=== PATIENT | female | born 1990 | race Caucasian/White ===

== ENCOUNTER 2017-04-06 23:36 | Emergency (ER) | payer OTHER ==
[2017-04-07 00:02] VITALS: BP 127/91; TEMP 98.4; O2SAT 97
[2017-04-07] MEDS ORDERED: ALPRAZolam 0.25 MG TAB PO ONE (00:14)
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
== END 2017-04-07 00:32 | disposition home or self-care (01) ==
LOC: ER 23:36
DX: T74.11XA Adult physical abuse, confirmed, initial encounter (principal); Y07.01 Husband, perpetrator of maltreatment and neglect; N80.9 Endometriosis, unspecified; C53.9 Malignant neoplasm of cervix uteri, unspecified; F41.9 Anxiety disorder, unspecified; Z88.6 Allergy status to analgesic agent; Z88.8 Allergy status to other drugs, medicaments and biological substances; Z91.030 Bee allergy status; Z87.891 Personal history of nicotine dependence

== ENCOUNTER 2017-04-08 02:03 | Emergency (ER) | payer OTHER ==
--- NOTE | 2017-04-08 02:54 | ED.PDOC ---
History of Present Illness - General Stated Complaint: cervical pain Time Seen by Provider: 04/08/17 02:48 Source: patient Exam Limitations: no limitations - History of Present Illness Initial Comments: Patient presents with pelvic pain. She was recently diagnosed with cervical cancer and is in the staging process. She was in pain tonight and called her doctor who suggested that she come to the ER for a stadol shot. No other complaints. Timing/Duration: changing over time Severity: moderate Improving Factors: nothing Worsening Factors: nothing Associated Symptoms: denies symptoms Allergies/Adverse Reactions: Allergies Meperidine [From Demerol HCl] Allergy (Verified 04/06/17 23:50) Gabapentin Adverse Reaction (Verified 11/11/16 13:18) Morphine Adverse Reaction (Verified 11/11/16 13:18) bee stings Adverse Reaction (Uncoded 08/08/15 10:42) Home Medications: Ambulatory Orders Clindamycin IV 300Mg [Cleocin IV 300mg] 300 mg PO DAILY 11/11/16 Clonazepam 0.5 mg PO DAILY PRN #10 tab 04/07/17 Review of Systems - Review of Systems Constitutional: States: no symptoms reported EENTM: States: no symptoms reported Respiratory: States: no symptoms reported Cardiology: States: no symptoms reported Gastrointestinal/Abdominal: States: no symptoms reported Genitourinary: States: see HPI Musculoskeletal: States: no symptoms reported Skin: States: no symptoms reported Neurological: States: no symptoms reported Endocrine: States: no symptoms reported Hematologic/Lymphatic: States: no symptoms reported Past Medical History (General) - Patient Medical History Hx Seizures: No Hx Stroke: No Hx Dementia: No Hx Asthma: No Hx of COPD: No Hx Cardiac Disorders: No Hx Congestive Heart Failure: No Hx Pacemaker: No Hx Hypertension: No Hx Thyroid Disease: No Hx Diabetes: No Hx Gastroesophageal Reflux: No Hx Renal Disease: No Hx Cancer: No Hx of HIV: No Hx Hepatitis C: No Hx MRSA: No - Vaccination History Hx Tetanus, Diphtheria Vaccination: Yes Hx Influenza Vaccination: Yes Hx Pneumococcal Vaccination: Yes - Social History Hx Tobacco Use: Yes Hx Chewing Tobacco Use: No Hx Alcohol Use: No Hx Substance Use: No Hx Substance Use Treatment: No Hx Depression: No Hx Physical Abuse: No Hx Emotional Abuse: No Hx Suspected Abuse: No - Female History Patient : No Family Medical History - Family History Mother Family History: No Known Hx Family Cancer: Yes - Mother Pancreatic Cancer Physical Exam - Physical Exam General Appearance: Alert Respiratory: lungs clear Cardiovascular/Chest: regular rate, rhythm Gastrointestinal/Abdominal: normal bowel sounds, non tender, soft Progress - Progress Progress: 04/08/17 02:54 Stadol 2 mg IM x one. Departure - Departure Clinical Impression: Pelvic pain Disposition: Discharge to Home or Self Care Condition: Good Diet: resume usual diet Activity: increase activity as tolerated Referrals: ALEXYS OLMOS,SIMON Cheema [Primary Care Provider] - 1-2 Weeks Home Medications: Ambulatory Orders Clindamycin IV 300Mg [Cleocin IV 300mg] 300 mg PO DAILY 11/11/16 Clonazepam 0.5 mg PO DAILY PRN #10 tab 04/07/17 Additional Instructions: Follow up with your primary care physician as scheduled.
[2017-04-08] MEDS ORDERED: BUTORPHANOL TARTRATE 2 MG/ML VIAL IM ONE (03:14)
[2017-04-08 03:48] VITALS: BP 120/83; TEMP 99.7; O2SAT 98
== END 2017-04-08 03:37 | disposition home or self-care (01) ==
LOC: ER 02:03
DX: R10.2 Pelvic and perineal pain (principal); C53.9 Malignant neoplasm of cervix uteri, unspecified; Z80.8 Family history of malignant neoplasm of other organs or systems; Z88.6 Allergy status to analgesic agent; Z88.8 Allergy status to other drugs, medicaments and biological substances; Z91.030 Bee allergy status

== ENCOUNTER 2017-09-11 21:35 | Emergency (ER) | payer OTHER ==
--- NOTE | 2017-09-11 21:45 | ED.PDOC ---
History of Present Illness - General Chief Complaint: General Stated Complaint: rib hurts on coughing Time Seen by Provider: 09/11/17 21:44 Source: patient Exam Limitations: no limitations - History of Present Illness Comments: Dede [place] 27 y/o female stated that she had been productive cough for the last one week and recently with left lower rib cage pain during coughing episodes denies hemoptysis ,fever or asthma .Stated had cut down on her smoking to 5 cigs/day Timing/Duration: other - 5 days Cough Quality/Degree: productive cough Possible Cause: occasional episodes Improving Factors: nothing Worsening Factors: nothing Associated Symptoms: chest pain/soreness - lower rib cage left Respiratory Risk Factors: other - cigarette Allergies/Adverse Reactions: Allergies Meperidine [From Demerol HCl] Allergy (Verified 04/08/17 03:13) Gabapentin Adverse Reaction (Verified 04/08/17 03:13) Morphine Adverse Reaction (Verified 04/08/17 03:13) bee stings Adverse Reaction (Uncoded 08/08/15 10:42) Home Medications: Ambulatory Orders Amoxicillin [Amoxil] 1,000 mg PO BID #30 cap 09/11/17 Benzonatate Perles [Tessalon Perles] 200 mg PO TID #30 cap 09/11/17 Review of Systems - Review of Systems Constitutional: States: no symptoms reported EENTM: States: no symptoms reported Respiratory: States: see HPI, cough Cardiology: States: no symptoms reported Gastrointestinal/Abdominal: States: no symptoms reported Past Medical History (General) - Patient Medical History Hx Seizures: No Hx Stroke: No Hx Dementia: No Hx Asthma: No Hx of COPD: No Hx Cardiac Disorders: No Hx Congestive Heart Failure: No Hx Pacemaker: No Hx Hypertension: No Hx Thyroid Disease: No Hx Diabetes: No Hx Gastroesophageal Reflux: No Hx Renal Disease: No Hx Cancer: No Hx of HIV: No Hx Hepatitis C: No Hx MRSA: No Hx Other PMH: Yes - endometriosis Surgical History: other - hysterectomy - Vaccination History Hx Tetanus, Diphtheria Vaccination: Yes Hx Influenza Vaccination: Yes Hx Pneumococcal Vaccination: Yes - Social History Hx Tobacco Use: Yes Hx Chewing Tobacco Use: No Hx Alcohol Use: No Hx Substance Use: No Hx Substance Use Treatment: No Hx Depression: No Hx Physical Abuse: No Hx Emotional Abuse: No Hx Suspected Abuse: No - Female History Patient : No Family Medical History - Family History Mother Family History: No Known Hx Cardiac Disease: Yes - parents Hx Family Diabetes: Yes - dad Hx Family Cancer: Yes - Mother Pancreatic Cancer Hx Family;Other: brain aneurysm -mom Physical Exam - Physical Exam General Appearance: Alert, No apparent distress Eye Exam: bilateral normal ENT Exam: normal ENT inspection, hearing grossly normal, pharynx normal Neck: full range of motion, supple, normal inspection, trachea midline Respiratory: lungs clear, normal breath sounds, no respiratory distress, other - tenderness left lower rib cage Cardiovascular/Chest: normal peripheral pulses, regular rate, rhythm, no murmur Gastrointestinal/Abdominal: non tender, soft, no organomegaly Neurologic: alert, oriented x 3 Skin Exam: normal color, warm/dry Lymphatic: no adenopathy Progress - EKG/XRAY/CT XRAY: chest - rib series no acute abnormalities Departure - Departure Clinical Impression: Rib pain on left side Sinusitis Qualifiers: Sinusitis location: unspecified location Chronicity: unspecified Qualified Code (s): J32.9 - Chronic sinusitis, unspecified Time of Disposition: 22:43 Disposition: Discharge to Home or Self Care Condition: Good Departure Forms: ED Discharge - Pt. Copy, Patient Portal Self Enrollment Instructions: Sinusitis (Alternative Therapy), Sinusitis Referrals: ALEXYS OLMOS,SIMON Cheema [Primary Care Provider] - 1-2 Weeks Prescriptions: Amoxicillin [Amoxil] 1,000 mg PO BID #30 cap Benzonatate Perles [Tessalon Perles] 200 mg PO TID #30 cap Home Medications: Ambulatory Orders Amoxicillin [Amoxil] 1,000 mg PO BID #30 cap 09/11/17 Benzonatate Perles [Tessalon Perles] 200 mg PO TID #30 cap 09/11/17 Additional Instructions: May use aspercreme lidocaine patch (over the counter) one patch daily for 7-10 days;Benadryl cough /cold medicine as directed on package(over the counter) Alternate cold /warm compress to affected rib cage area 20 minutes 3 x a day during waking hours only until better
--- NOTE | 2017-09-11 22:27 | RAD ---
Examination: XR RIBS 3 VIEWS BILATERAL dated 09/11/2017 10:06 PM CDT History: left rib pain from coughing Comparison: 10/23/2016 Technique: Four views of both ribs Findings: No displaced rib fracture. The lungs are clear bilaterally. No pneumothorax or pleural effusion. The cardiomediastinal silhouette is within normal limits. Impression: No displaced rib fracture. Electronically signed by: Raji Paul MD 09/11/2017 10:26 PM CDT
--- NOTE | 2017-09-11 22:28 | RAD ---
Examination: XR CHEST 1 VIEW dated 09/11/2017 10:06 PM CDT History: left rib pain from coughing Comparison: 10/23/2016 Technique: Frontal view of the chest Findings: The lungs are clear bilaterally. No pneumothorax or pleural effusion. The cardiomediastinal silhouette is within normal limits. Impression: No acute disease. Electronically signed by: Raji Paul MD 09/11/2017 10:27 PM CDT
[2017-09-11] MEDS: BENZONATATE PERLES 100 MG CAP PO ONE (22:54)
[2017-09-11] MEDS: AMOXICILLIN 500 MG CAP PO ONE (22:54)
[2017-09-11] MEDS: HYDROcodone 7.5MG/APAP 325MG 1 EA TAB PO ONE (22:54)
[2017-09-11] MEDS: KETOROLAC TROMETHAMINE INJ 30 MG/ML VIAL IM ONE (22:55)
[2017-09-11] MEDS: diphenhydrAMINE HCL 25 MG CAP PO ONE (22:58)
[2017-09-11 23:08] VITALS: BP 104/69; TEMP 97.8; O2SAT 99
== END 2017-09-11 23:08 | disposition home or self-care (01) ==
LOC: ER 21:35
DX: J32.9 Chronic sinusitis, unspecified (principal); R07.81 Pleurodynia; F17.210 Nicotine dependence, cigarettes, uncomplicated; Z88.6 Allergy status to analgesic agent; Z88.8 Allergy status to other drugs, medicaments and biological substances
CPT/HCPCS: 71010; 71111; J1885; Q0163

== ENCOUNTER 2017-12-06 16:31 | Emergency (ER) | payer OTHER ==
[2017-12-06 16:46] VITALS: BP 123/85; TEMP 98.4
--- NOTE | 2017-12-06 16:49 | ED.PDOC ---
History of Present Illness - General Chief Complaint: ENT Problem Stated Complaint: sore throat Time Seen by Provider: 12/06/17 16:48 Source: patient Exam Limitations: no limitations - History of Present Illness Initial Comments: Dede [place] 27 y/o female seen today with achy throat ,headache ,and nasal congestion reported has elevated temperature which sh took at home T-104 but taken here at ER she is afebrile.No N/V/D.No ill contact also states she has low potassium but despite supplements accdg.to her.Had flu immunization. Timing/Duration: 24 hours Severity: moderate Improving Factors: nothing Worsening Factors: nothing Associated Symptoms: loss of appetite, other - see hpi Allergies/Adverse Reactions: Allergies Meperidine [From Demerol HCl] Allergy (Verified 12/06/17 16:47) Gabapentin Adverse Reaction (Verified 12/06/17 16:47) abreva Allergy (Uncoded 12/06/17 16:47) bee stings Adverse Reaction (Uncoded 12/06/17 16:47) Home Medications: Ambulatory Orders Cefuroxime Axetil [Ceftin] 500 mg PO Q12H #14 tablet 12/06/17 Review of Systems - Review of Systems Constitutional: States: no symptoms reported EENTM: States: see HPI, nose congestion, throat pain Respiratory: States: no symptoms reported Cardiology: States: no symptoms reported Gastrointestinal/Abdominal: States: no symptoms reported Genitourinary: States: no symptoms reported Musculoskeletal: States: no symptoms reported Skin: States: no symptoms reported Past Medical History (General) - Patient Medical History Hx Seizures: No Hx Stroke: No Hx Dementia: No Hx Asthma: No Hx of COPD: No Hx Cardiac Disorders: No Hx Congestive Heart Failure: No Hx Pacemaker: No Hx Hypertension: No Hx Thyroid Disease: No Hx Diabetes: No Hx Gastroesophageal Reflux: No Hx Renal Disease: No Hx Cancer: Yes - "endometrial cancer" Hx of HIV: No Hx Hepatitis C: No Hx MRSA: No Surgical History: Hysterectomy, other - hysterectomy - Vaccination History Hx Tetanus, Diphtheria Vaccination: Yes Hx Influenza Vaccination: Yes Hx Pneumococcal Vaccination: No - Social History Hx Tobacco Use: Yes Hx Chewing Tobacco Use: No Hx Alcohol Use: No Hx Substance Use: No Hx Substance Use Treatment: No Hx Depression: No Hx Physical Abuse: No Hx Emotional Abuse: No Hx Suspected Abuse: No - Female History Patient is a Female of Child Bearing Age (10 -59 yrs old): Yes Patient : No Family Medical History - Family History Mother Family History: No Known Hx Cardiac Disease: Yes - parents Hx Family Diabetes: Yes - dad Hx Family Cancer: Yes - Mother Pancreatic Cancer Hx Family;Other: brain aneurysm -mom Physical Exam - Physical Exam General Appearance: Alert, Comfortable, No apparent distress Eye Exam: bilateral normal Ears, Nose, Throat: hearing grossly normal, nasal congestion, pharyngeal erythema Neck: non-tender, full range of motion, supple Respiratory: chest non-tender, lungs clear Cardiovascular/Chest: normal peripheral pulses, regular rate, rhythm, no murmur Peripheral Pulses: radial,right: 2+, radial,left: 2+ Gastrointestinal/Abdominal: normal bowel sounds, non tender, soft, no organomegaly Back Exam: normal inspection, no CVA tenderness Extremity: normal range of motion, non-tender, no pedal edema, no calf tenderness Neurologic: alert, oriented x 3 Progress - Progress Progress: 12/06/17 17:30 Vital Signs - 8 hr 12/06/17 16:37 Temperature 98.4 F Pulse Rate [ 85 pulse ox] Respiratory 20 Rate Blood Pressure 123/85 [Left Arm] O2 Sat by Pulse 95 Oximetry - Results/Orders Results/Orders: Laboratory Tests 12/06/17 12/06/17 17:08 17:11 Sodium 138 Potassium 3.4 L Chloride 101 Carbon Dioxide 27 Anion Gap 13.4 Calcium 9.4 Group A Strep DNA Positive Departure - Departure Clinical Impression: Strep sore throat, Hypokalemia Insomnia Qualifiers: Insomnia type: unspecified Qualified Code(s): G47.00 - Insomnia, unspecified Time of Disposition: 18:01 Disposition: Discharge to Home or Self Care Condition: Good Departure Forms: ED Discharge - Pt. Copy, Patient Portal Self Enrollment Instructions: DI for Strep Throat, Strep Throat Referrals: Miriam Aldana DO [Primary Care Provider] - 1-2 Weeks Prescriptions: Cefuroxime Axetil [Ceftin] 500 mg PO Q12H #14 tablet Home Medications: Ambulatory Orders Cefuroxime Axetil [Ceftin] 500 mg PO Q12H #14 tablet 12/06/17 Additional Instructions: KEEP APPOINTMENT WITH PRIMARY MD IN AM 12/07/2017
[2017-12-06] MEDS ORDERED: ceFAZolin SODIUM 1 GM VIAL IM ONE (18:01)
[2017-12-06] MEDS ORDERED: KETOROLAC TROMETHAMINE INJ 30 MG/ML VIAL IM ONE (18:01)
[2017-12-06] MEDS ORDERED: predniSONE 20 MG TAB PO ONE (18:01)
[2017-12-06] MEDS ORDERED: WATER FOR INJ 10 ML VIAL INJ ONE (18:15)
[2017-12-06 18:30] VITALS: O2SAT 96
== END 2017-12-06 18:30 | disposition home or self-care (01) ==
LOC: ER 16:31
DX: J02.0 Streptococcal pharyngitis (principal); E87.6 Hypokalemia; G47.00 Insomnia, unspecified; Z85.89 Personal history of malignant neoplasm of other organs and systems
CPT/HCPCS: 36415; 80048; 83735; 87651; A4216; J0690; J1885; J7512

== ENCOUNTER 2018-01-12 05:22 | Emergency (ER) | payer OTHER ==
[2018-01-12] MEDS ORDERED: ZIPRASIDONE INJ 20 MG/ML VIAL IM ONE (05:31)
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
[2018-01-12 06:50] VITALS: TEMP 98.2
[2018-01-12 06:57] VITALS: O2SAT 99
[2018-01-12 12:27] VITALS: BP 125/78
== END 2018-01-12 14:38 | disposition home or self-care (01) ==
LOC: ER 05:22
DX: F23 Brief psychotic disorder (principal); F19.10 Other psychoactive substance abuse, uncomplicated
CPT/HCPCS: 36415; 80053; 80301; 80320; 80329; 81001; 81025; 85025; J2060; J3486

== ENCOUNTER 2018-08-08 00:58 | Emergency (ER) | payer OTHER ==
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
[2018-08-08] MEDS: CLINDAMYCIN HCL CAP 150 MG CAP PO ONE (01:34)
[2018-08-08] MEDS: traMADol HCL 50 MG TAB PO ONE (01:34)
[2018-08-08 01:35] VITALS: BP 121/78; TEMP 97.2; O2SAT 98
== END 2018-08-08 01:46 | disposition home or self-care (01) ==
LOC: ER 00:58
DX: S02.5XXA Fracture of tooth (traumatic), initial encounter for closed fracture (principal); K02.9 Dental caries, unspecified; Z85.44 Personal history of malignant neoplasm of other female genital organs; Z88.8 Allergy status to other drugs, medicaments and biological substances; X58.XXXA Exposure to other specified factors, initial encounter